=== PATIENT | female | born 1965 | race Two or more races ===

== ENCOUNTER 2016-10-01 16:44 | Emergency (ER) | payer OTHER ==
[2016-10-01] MEDS ORDERED: predniSONE 20 MG TAB PO ONE (16:50)
[2016-10-01] MEDS ORDERED: FAMOTIDINE 20 MG/2 ML SDV IVP ONE (16:50)
[2016-10-01] MEDS ORDERED: NS 1,000 ML IV ONE (16:52)
--- NOTE | 2016-10-01 17:07 | EDPHY ---
H & P HPI/ROS: Chief complaint: Allergic reaction History of present illness: This is a 50-year-old female brought to the emergency department by EMS for an allergic reaction. Patient has a history of severe allergic reactions, she does carry epinephrine pens, no known precipitating factors at this time. Patient reports the onset of an allergic reaction today. She reports she developed a rash primarily to her face, neck and chest. She started to get swelling in her throat and had difficulty breathing. She went to [facility] and was given an epinephrine pen and 911 was called. EMS has provided her with 25 mg of Benadryl and 125 mg of Solu- Medrol IV. She has improvement in symptoms. This is a typical allergic reaction to her. Again she has seen an job placement officer and no precipitating factors are known at this time. She denies other associated signs or symptoms. Review of systems: A 10 point review of systems was obtained and other than described above was negative - Medical/Surgical History Hx Asthma: Yes Hx Chronic Respiratory Disease: No Hx Diabetes: No Hx Cardiac Disease: No Hx Renal Disease: No Hx Cirrhosis: No Hx Alcoholism: No Hx HIV/AIDS: No Hx Splenectomy or Spleen Trauma: No Other PMH: HYPOTHYROID - Social History Smoking Status: Never smoked - Physical Exam Exam: General Appearance: Alert, nontoxic. Eyes: Pupils equal and round no pallor or injection. ENT, Mouth: No angioedema, no drooling, no hoarseness, no stridor Respiratory: There are no retractions, lungs are clear to auscultation. Cardiovascular: Regular rate and rhythm. Gastrointestinal: Abdomen is soft and non tender, no masses, bowel sounds normal. Neurological: Alert and oriented. Strength and sensation intact and symmetrical. Skin: Warm and dry, no rashes. Musculoskeletal: Neck is supple non tender. Extremities are symmetrical, full range of motion. Psychiatric: Patient is oriented X 3, there is no agitation. Constitutional: Initial Vital Signs Temperature (C) 36.4 C 10/01/16 17:02 Heart Rate 82 10/01/16 17:02 Respiratory Rate 16 10/01/16 17:02 Blood Pressure 138/78 H 10/01/16 17:02 O2 Sat (%) 98 10/01/16 17:02 O2 Delivery Mode Room Air Allergies/Adverse Reactions: latex Allergy (Verified 05/03/16 12:29) Home Medications: Medication Instructions Recorded Levothyroxine [Synthroid] 0 mcg PO DAILY06 04/16/15 EPINEPHRINE [EPIPEN] 0.3 mg IM ONCE #2 syr 05/03/16 predniSONE 60 mg PO DAILY #9 tab 05/03/16 predniSONE 60 mg PO DAILY 4 Days 10/01/16 Medical Decision Making ED Course/Re-evaluation: Patient seen under the supervision of my secondary supervising physician Dr. Tera Tyson. Patient presents to the emergency department concerned she is having allergic reaction. She was symptomatically treated prior to arrival with improvement in symptoms. She is given additional prednisone, Benadryl and Pepcid in the emergency department. She is observed for almost 3 hours with complete resolution of symptoms. She is comfortable being discharged home. Again she has a history of allergic reactions, she has had similar in the past. She reports she has 2 epinephrine pens at home. She will be discharged home. Home care is discussed including the use of prednisone, Benadryl and Pepcid. The emergent use of epinephrine pens are reviewed. She is asked to follow up with a primary care doctor for recheck. Return precautions are given. Patient voiced understanding and agreement with plan. - Data Points Medications Given: Discontinued Medications Diphenhydramine HCl (Benadryl Injection) 25 mg IVP EDNOW ONE Stop: 10/01/16 16:51 Last Admin: 10/01/16 17:12 Dose: 25 mg Famotidine (Pepcid) 20 mg IVP EDNOW ONE Stop: 10/01/16 16:51 Last Admin: 10/01/16 17:13 Dose: 20 mg Sodium Chloride (Ns) 1,000 mls @ 0 mls/hr IV ONCE ONE PRN Reason: Wide Open Stop: 10/01/16 16:53 Last Admin: 10/01/16 17:13 Dose: 1,000 mls Prednisone (Prednisone) 60 mg PO EDNOW ONE Stop: 10/01/16 16:51 Last Admin: 10/01/16 17:13 Dose: 60 mg Departure - Departure Disposition: Home, Routine, Self-Care Clinical Impression: Allergic reaction Condition: Good Instructions: Angioedema (ED) Additional Instructions: Follow-up with her primary care doctor this week for recheck Take steroids daily for the next 4 days until finished even if feeling better Use [id number] Benadryl and Pepcid as directed for the next 3 days for symptom control If symptoms worsen or new symptoms develop return to the emergency department for recheck Referrals: Belinda Church MD [Primary Care Provider] - As per Instructions Prescriptions: predniSONE 60 mg PO DAILY 4 Days
[2016-10-01 19:42] VITALS: BP 125/80; PULSE 73; RESP 20; TEMP 98.4; O2SAT 96
== END 2016-10-01 19:42 | disposition home or self-care (01) ==
LOC: EDUNIT#
DX: R21 Rash and other nonspecific skin eruption (principal); J45.909 Unspecified asthma, uncomplicated; Z91.040 Latex allergy status
CPT/HCPCS: 96374

== ENCOUNTER 2017-10-17 17:46 | Emergency (ER) | payer SELFPAY ==
[2017-10-17 19:09] VITALS: TEMP 98.6
--- NOTE | 2017-10-17 19:15 | EDPHY ---
H & P Time Seen by Provider: 10/17/17 18:59 HPI/ROS: CHIEF COMPLAINT: Fall HISTORY OF PRESENT ILLNESS: The patient is a 52-year-old female who presents emergency department after slipping on the ice earlier this morning. She states she landed on her back. She struck her head, left back, left elbow and left hip. She has slowly developed swelling over her left hip. She has increased pain with ambulation. Patient denies loss of consciousness. She has a mild headache. She has had nausea with no vomiting. No focal weakness or numbness. No visual change. The patient has right lateral neck discomfort. No midline neck discomfort. Patient has no shortness of breath. No cough. REVIEW OF SYSTEMS: My complete review of systems is negative except as mentioned in the HPI. Past Medical/Surgical History: Includes hypothyroidism Past surgical history: Includes hernia repair, appendectomy, total abdominal hysterectomy Social history: The patient does not smoke Smoking Status: Never smoked Physical Exam: GENERAL: Well-appearing, in no acute distress, alert. HEAD: No evidence of trauma. No hematoma. EYES: PERRLA, EOMI, normal to inspection. ENT: Airway intact, no dental or oral injury, no malocclusion, no hemotympanum , normal external examination. NECK: The trachea is midline. There is no crepitus. The C-spine is nontender. NEXUS criteria is negative (no midline tenderness, no distracting injury, no altered mental status, no recent alcohol use, no focal neurologic deficit). RESPIRATORY: Clear to auscultation bilaterally, no rales, rhonchi or wheezing. There is no crepitus or palpable rib fractures. CVS: Regular rate and rhythm, no rubs, murmurs, or gallops. ABDOMEN: Soft, nontender, nondistended, normal bowel sounds, no bruising or abrasions. Pelvis: Stable. Left hip tenderness to palpation. BACK: Normal to inspection, no spinal tenderness, no spinal step off, no notable bruising or abrasions. SKIN: Normal color, warm, dry. No pallor or diaphoresis. EXTREMITIES: Right upper extremity: Atraumatic. No visible signs of trauma. No tenderness palpation. Neurovascular intact distally. Left upper extremity: The patient has mild left scapular tenderness palpation. There is mild left elbow tenderness. No deformity. No tenderness palpation. Neurovascular intact distally. Right lower extremity: Left hip pain. Patient has left hip hematoma. The compartment is not tense. No tenderness palpation. Neurovascular intact distally. Left lower extremity: Atraumatic. No visible signs of trauma. No tenderness palpation. Neurovascular intact distally. NEURO/PSYCH: Alert and oriented x 3, GCS 15, normal mood and affect, normal motor sensory exam. Constitutional: Initial Vital Signs Temperature (C) 36.7 C 10/17/17 17:49 Heart Rate 70 10/17/17 17:49 Respiratory Rate 16 10/17/17 17:49 Blood Pressure 136/87 H 10/17/17 17:49 O2 Sat (%) 7 L 10/17/17 17:49 O2 Delivery Mode Room Air Allergies/Adverse Reactions: latex Allergy (Verified 10/17/17 17:47) Home Medications: Medication Instructions Recorded Levothyroxine [Synthroid] 0 mcg PO DAILY06 04/16/15 EPINEPHRINE [EPIPEN] 0.3 mg IM ONCE #2 syr 05/03/16 predniSONE 60 mg PO DAILY #9 tab 05/03/16 predniSONE 60 mg PO DAILY 4 Days tab 10/01/16 Medical Decision Making - Diagnostics Imaging Results: Imaging Impressions Chest X-Ray 10/17/17 19:12 Impression: 1. Negative. No acute process. 2. Old minimal compression deformities in the upper thoracic spine. Shoulder X-Ray 10/17/17 19:12 Impression: Negative. No acute fracture or AC separation. Elbow X-Ray 10/17/17 19:13 Impression: Negative. No fracture or effusion. ED Course/Re-evaluation: In the emergency department I discussed possible etiologies with the patient and family. I answered all her questions. Patient had an x-ray ordered of her left shoulder, left elbow, left hip including pelvis, and chest x-ray. The patient was given 2 Percocet orally. Please refer the dictated report by Dr. Álvarez. No fractures noted. I discussed the results with the patient. I answered all her questions. She was given warnings prior to leaving. She will ice her injuries for the next 2 days. She was given take-home pack of Imbler and a prescription. Differential Diagnosis: My differential includes but is not limited to fracture, dislocation, contusion , sprain, subarachnoid hemorrhage, subdural hematoma, epidural hematoma, spinal injury. I do not feel the patient needs head CT imaging. She has had no vomiting. Her headache is improved. She did not lose consciousness. There is no hematoma. Patient has no C-spine tenderness. Nexus criteria is negative. - Data Points Medications Given: Discontinued Medications Oxycodone/Acetaminophen (Percocet 5/325) 2 tab PO EDNOW ONE Stop: 10/17/17 20:51 Last Admin: 10/17/17 20:52 Dose: 2 tab Departure - Departure Disposition: Home, Routine, Self-Care Clinical Impression: Fall Qualifiers: Encounter type: initial encounter Qualified Code(s): W19.XXXA - Unspecified fall, initial encounter Contusion Qualifiers: Encounter type: initial encounter Contusion area: shoulder Laterality: left Qualified Code(s): S40.012A - Contusion of left shoulder, initial encounter Condition: Good Instructions: Fall Prevention (ED), Contusion in Adults (ED) Additional Instructions: Return with increasing pain, swelling, lightheadedness, dizziness or any other concerns. Referrals: [facility],. [Clinic] - 5-7 days, call for appt.
[2017-10-17 20:15] VITALS: RESP 18
[2017-10-17] MEDS ORDERED: OXYCODONE/APAP 5/325 TAB ONE (20:48)
[2017-10-17] MEDS ORDERED: OXYCODONE/APAP 5/325 TAB PO ONE (20:50)
[2017-10-17] MEDS ORDERED: HYDROCOD/APAP 5/325 PREPACK#6 BTL TAKEHOME ONE (22:13)
[2017-10-17 22:22] VITALS: BP 138/78; PULSE 72; O2SAT 95
[2017-10-17] MEDS ORDERED: ONDANSETRON DISINTEGRATING 4 MG TAB PO ONE (22:22)
[2017-10-17] MEDS ORDERED: ONDANSETRON 4MG PREPACK#2 BTL TAKEHOME ONE (22:25)
== END 2017-10-17 22:14 | disposition home or self-care (01) ==
DX: S40.012A Contusion of left shoulder, initial encounter (principal); Z91.040 Latex allergy status; W00.0XXA Fall on same level due to ice and snow, initial encounter